=== PATIENT | male | born 1970 | race African-American/Black ===

== ENCOUNTER 2016-07-01 07:13 | Outpatient (CLI) | payer OTHER ==
--- NOTE | 2016-07-01 11:32 | Ultrasound Report ---
Limited abdominal ultrasound: Imaging of the liver, pancreas, and gallbladder are echogenically normal. The diameter of the CBD is 4.4 mm. The right kidney has a length of 11 cm with normal parenchymal thickness and no echogenic abnormality. The transverse diameter of the proximal abdominal aorta is 1.9 cm. Impression: Normal exam.
== END 2016-07-01 07:14 | disposition home or self-care (01) ==
LOC: US 07:13
PROVIDERS: ATTEND Family Medicine
DX: R10.11 Right upper quadrant pain (principal)
CPT/HCPCS: 76705